=== PATIENT | male | born 1960 | race Caucasian/White ===

== ENCOUNTER 2021-09-17 15:16 | Outpatient (CLI) | payer BC, SELFPAY ==
[2021-09-17 15:51] LABS: Basophils Percent Auto 0.7 % (0.2-1.2); Eosinophils Percent Auto 0.2 % (0-4.4); Hematocrit 41.5 % (42.0-52.0); Lymphocytes Percent Auto 30.4 % (18.3-44.2); Mean Corpuscular HGB Conc 33.7 g/dl (32-36); Mean Corpuscular Hemoglobin 30.3 pg (26-34); Mean Corpuscular Volume 89.8 fl (80-100); Mean Platelet Volume 10.2 fl (7.4-10.4); Monocytes Absolute Auto 0.4 K/mm3 (0.1-0.6); Monocytes Percent Auto 7.8 % (2.6-8.5); Neutrophils Absolute Auto 2.8 K/mm3 (1.3-6.7); Neutrophils Percent Auto 60.9 % (45.5-73.1); Platelet Count Result 249 k/mm3 (150-375); Red Blood Count 4.62 M/mm3 (4.6-6.20); Red Cell Distribution Width 12.4 % (11.5-14.5); White Blood Count 4.6 K/mm3 (4.5-10.0)
[2021-09-17 15:57] LABS: Anion Gap 7 mmol/L (8-16); Blood Urea Nitrogen 17 mg/dL (9-20); Calcium 9.9 mg/dL (8.4-10.2); Carbon Dioxide 31 mmol/L (22-30); Chloride 101 mmol/L (98-107); Estimated Glomerular Filt Rate > 60; Glucose 100 mg/dL (65-110); Sodium 139 mmol/L (137-145)
[2021-09-17 15:59] LABS: INR 1.1; Partial Thromboplastin Time 28.9 SECONDS (22.3-36.8); Prothrombin Time 13.8 Seconds (11.1-14.7)
== END 2021-09-17 15:17 | disposition home or self-care (01) ==
PROVIDERS: PCP Family Medicine; Visit Provider Urology
DX: Z01.812 Encounter for preprocedural laboratory examination (principal); N40.1 Benign prostatic hyperplasia with lower urinary tract symptoms; Z51.81 Encounter for therapeutic drug level monitoring; Z79.899 Other long term (current) drug therapy
CPT/HCPCS: 36415; 80048; 85025; 85610; 85730; 87077; 87086; 87088

== ENCOUNTER 2021-09-23 00:58 | Day surgery (SDC) | payer BC, SELFPAY ==
[2021-09-17 10:58] VITALS: BMI 21.2
--- NOTE | 2021-09-17 11:08 | PC.NURSE ---
Report to the Outpatient Waiting Room, entrance under the green pavilion located off [facility], at time 6:00 on date 09/23/21. OR Time: 8:00. - You will be asked a series of questions to screen for COVID 19 for your protection. - A mask is required within the hospital. - No visitors are allowed at this time. Preoperative COVID Testing Requirements: TO BRING COPY OF COVID CARD No COVID Test needed if: (proof is required; if not received patient will have Rapid Test prior to entry) - Patient has received COVID Vaccine at least 14 days prior to procedure date or - Patient has positive COVID test result within last 90 days of surgery date. COVID Test needed if above criteria is not met Patients may have clear liquids (water, carbonated beverages, clear teas, apple juice) until 3 hours prior to surgery (5:00) with a maximum of 20 ounces. - No food from midnight until time of surgery Take the following medications with a SIP of water the morning of surgery: NONE Medications to discontinue per physician: VITAMINS/SUPPLEMENTS Date to take last dose: 09/19/21 Please no make-up, nail macedonian, hairspray, perfume, deodorant, or body powder the day of surgery. No jewelry (including any body piercings) or valuables the day of surgery, leave them at home. Please take a shower or bath the night before, or the morning of, surgery with an antibacterial soap. Wear comfortable, loose fitting clothing. - Jewelry must be removed prior to entering the operating room. Rings and piercings that are not removed may be cut off. - The hospital will not accept responsibility for valuables. - Please leave all valuables, including medications, at home the day of surgery. If you are going home after surgery, a licensed oil truck driver must drive you home. - NO public transportation without another adult. - We recommend that an adult stay with you for 24 hours following discharge. - We also recommend that you do not drive, make important decision, drink alcoholic beverages, or take any drugs that were not prescribed by your health care provider for at least 24 hours after your discharge time. Follow any additional instructions given to you from your surgeon. Telephone instructions given to HERMELINDA WHYTE and asked if any additional questions and then verbalized understanding. Patient advised to call surgeon office or pre surgery nurse liaison [phone] if any additional questions.
--- NOTE | 2021-09-22 15:19 | WPDANESEPPF ---
Anes - Initial Pre Proc Eval Procedure: Operation Date: 09/23/21 08:00 Proposed Procedures p Trans Urethral Resection Prostate - Joaquim Middleton MD Date/Time: 09/22/21 15:19 Surgeon: Joaquim Middleton MD Pre Op Diagnosis: bph with obstruction Patient Data Age: 61 Gender: M Height: 1.93 m Weight: 79.38 kg Allergies Allergy/AdvReac Type Severity Reaction Status Date / Time No Known Allergies Allergy Verified 09/17/21 10:56 Home Medications Medication Instructions Recorded Confirmed Type cholecalciferol (vitamin D3) 50 mcg PO DAILY 09/17/21 09/17/21 History [Vitamin D3] finasteride 5 mg PO DAILY 09/17/21 09/17/21 History multivitamin 1 tablet PO DAILY 09/17/21 09/17/21 History tamsulosin 0.4 mg PO BID 09/17/21 09/17/21 History Patient hx anesthesia problems: none Family hx anesthesia problems: none Results Review: All pre-operative results and documents have been reviewed as part of the pre-operative evaluation. [facility] Past Medical History Medical History (Updated 09/22/21 @ 15:20 by Moe Stanley DO) BPH (benign prostatic hyperplasia) Social History Social History Smoking status: Never smoker Alcohol intake: current Alcohol use details: 2/MONTH Substance use: never Substance use type: does not use Living arrangements: with family Spiritual care concerns: No Anes - Eval Final PreProcedure Day of Procedure 09/22/21 15:19 Patient weight: normal Heart: regular rate and rhythm Lungs: clear to auscultation and normal air movement Airway: Mallampati scale class II Neurological: alert and oriented Last oral intake: >/= 8 hours ASA classification: II Emergent: no Anesthetic plan: proceed Anesthesia type and monitoring: general LMA and standard monitoring Results Review: All pre-operative results and documents have been reviewed as part of the pre-operative evaluation. Informed Consent: The patient's anesthetic plan and its attendant risks and benefits were discussed with the patient/family/POA. Questions were solicited and answers provided to the satisfaction of the patient/family/POA.
[2021-09-23] VITALS (12 sets, daily range): BP systolic 117–166; BP diastolic 66–94; PULSE 67–109; RESP 14–18; TEMP 36.3–37.2; O2SAT 97–100
--- NOTE | 2021-09-23 06:52 | WPDHPUPDATE1 ---
History and Physical Update Update Date/Time: 09/23/21 06:52 History and Physical has been reviewed, including an updated exam of the patient. There are NO changes in the patient's condition. Risks, benefits, and alternatives have been discussed and questions answered. Patient agrees to proceed with procedure. Proceed with TURP
[2021-09-23] MEDS: LACTATED RINGERS 1,000 ML 30 ML IV CONT ×2 (07:00→09:28)
[2021-09-23] MEDS: MIDAZOLAM HCL (*CRX) 2 MG/2 ML VIAL IV PUSH (07:19)
[2021-09-23] MEDS: ceFAZolin 2 GM/D5W 50 ML 2 GM/50 ML BAG IVPB (07:40)
[2021-09-23] MEDS: LIDOCAINE HCL 2% GEL UROJET 10 ML PKG MUCOUS MEM (08:08)
--- NOTE | 2021-09-23 09:24 | W.PM.PROC2 ---
Procedure Note - Detailed Date of Procedure 09/23/21 Pre-op Diagnosis bph with obstruction Post-op Diagnosis same Procedure Performed Transurethral resection of prostate with urethral dilation Surgeon Joaquim Middleton MD Anesthesia general Description of Procedure The patient was brought to the operative suite where he is prepped and draped in routine sterile fashion while in the dorsal lithotomy position after the uneventful induction of a [general LMA/spinal] anesthetic.He had a tight bulbar area. This was dilated. A 24 [place] resectoscope sheath was placed into his bladder. . The patient had [trilobar/bilobar] hyperplasia with a large] median lobe. The bladder itself was endoscopically normal, showing no mucosal hyperemia, intravesical neoplasm or foreign bodies. There was a single, orthotopic ureteral orifice bilaterally. These orifices were identified and preserved throughout the remainder of the procedure. Attention was 1st turned to resection of the median lobe . This resection was undertaken from the bladder neck to the verumontanum and carried out until the transverse fibers of the bladder neck were identified. The left lateral lobe was then resected starting at the 6 o'clock position, working counter clockwise to the 12 o'clock position. Again, resection was carried out from the bladder neck to the verumontanum. The right lateral lobe was resected in a similar fashion starting at the 6 o'clock position working clockwise to the 12 o'clock position. Apical tissue was then circumferentially resected. All chips were evacuated from the bladder using an Edtrips evacuator. Hemostasis was obtained with electric cautery. The ureteral orifices were again inspected and found to be without injury. Estimated blood loss throughout this procedure was 100cc . 2% viscous lidocaine was inserted urethra and a [address] was placed with 30 cc in the balloon. This was connected to continuous bladder irrigation The patient was taken to recovery room having tolerated this well. Drains Yes Packing No Pathology yes Complications No immediate complications Condition stable Disposition PACU
[2021-09-23] MEDS: DEXTROSE 5%/LACTATED RINGERS 1,000 ML 125 ML IV CONT (11:48)
--- NOTE | 2021-09-23 12:12 | PC.NURSE ---
This patient, David Salgado, was admitted to [facility]-. Patient/family oriented to hospital policies and general routines including ID bracelet, bed and alarms, visiting hours, pain management, procedures, bathroom and other care routines, personal items, smoking policy, room service/diet, and visiting hours. Information on how to activate the Rapid Response Team has been discussed. Patient/Family are encouraged to report perceived risks to care and to ask questions if they do not understand what they are told or what they should do.
[2021-09-24] VITALS: BP 120/72; PULSE 64; RESP 14; TEMP 36.3; O2SAT 99
[2021-09-24 05:06] VITALS: BP 126/78; PULSE 65; RESP 16; TEMP 36.3; O2SAT 99
[2021-09-24 05:36] LABS: Hemoglobin 11.7 g/dL (14.0-18.0)
[2021-09-24 05:59] LABS: Anion Gap 8 mmol/L (8-16); Blood Urea Nitrogen 19 mg/dL (9-20); Calcium 8.8 mg/dL (8.4-10.2); Carbon Dioxide 27 mmol/L (22-30); Chloride 104 mmol/L (98-107); Estimated CRCL calculation 75 ml/min; Estimated Glomerular Filt Rate > 60; Glucose 105 mg/dL (65-110); Potassium 3.6 mmol/L (3.4-5.0); Sodium 139 mmol/L (137-145)
--- NOTE | 2021-09-24 08:09 | WPDUROPN2 ---
Progress Note: A&P Assessment and Plan (1) BPH (benign prostatic hyperplasia): Code(s): N40.0 - Benign prostatic hyperplasia without lower urinary tract symptoms Status: Acute Assessment and Plan: Postoperative day 1. Doing well overall. Hold CBI. Increase ambulation. If urine remains fairly clear light pink will discharge home with Salinas catheter. (2) Urinary retention: Code(s): R33.9 - Retention of urine, unspecified Status: Acute Assessment and Plan: Component of this is secondary to BPH. He also may have a slight neurogenic component given the fact that he retains over 400 cc and has lack of sensation with that amount. Will see how he Subjective Subjective Date/Time Seen: 09/24/21 08:09 Post Op day: 1 (Trans Urethral resection of prostate) Principal diagnosis: BPH with urinary retention Interval history: doing well postoperative day 1. Urine is clear with very minimal CBI. Review of Systems Review of Systems: All systems reviewed & are unremarkable except as noted in HPI and below Exam Const: General: cooperative and comfortable Resp: Effort & Inspection: normal respiratory effort Cardio: Rate: regular rate Rhythm: regular rhythm GI: GI Palp: Yes Soft to palpation Objective Data Vital Signs Vital Signs: Vital Signs - 24 hr 09/23/21 09:28 09/23/21 09:40 09/23/21 09:55 Temperature 37.2 C Pulse Rate 77 78 75 Respiratory Rate 14 18 16 Blood Pressure 117/76 120/86 130/88 Pulse Oximetry 98 99 100 09/23/21 10:10 09/23/21 10:25 09/23/21 10:35 Temperature 36.3 C L Pulse Rate 78 78 75 Respiratory Rate 14 16 16 Blood Pressure 132/87 133/82 141/87 H Pulse Oximetry 100 97 97 09/23/21 10:55 09/23/21 12:23 09/23/21 16:18 Temperature 36.8 C 36.6 C Pulse Rate 84 77 68 Respiratory Rate 16 16 16 Blood Pressure 146/88 H 141/84 H 125/76 Pulse Oximetry 99 99 09/23/21 20:00 09/23/21 22:00 09/24/21 00:00 Temperature 36.7 C 36.7 C 36.3 C L Pulse Rate 67 67 64 Respiratory Rate 16 16 14 Blood Pressure 124/66 124/66 120/72 Pulse Oximetry 99 99 99 09/24/21 05:06 Temperature 36.3 C L Pulse Rate 65 Respiratory Rate 16 Blood Pressure 126/78 Pulse Oximetry 99 Intake/Output Intake/Output: Intake & Output 09/21/21 09/22/21 09/23/21 09/24/21 23:59 23:59 23:59 23:59 Intake Total 42248 9350 Output Total 20571 33186 Balance -39346 -9808 Meds/Results Medications: Active Medications Generic Name Dose Route Start Last Admin Trade Name Freq PRN Reason Stop Dose Admin Hydrocodone Bitart/Acetaminophen 1 tab 09/23/21 10:38 Hydrocodone/Acetaminophen (*Crx) 5-325 Mg Tablet PO Q4H PRN Pain Rated 1-6 Cephalexin HCl 500 mg 09/24/21 09:00 Cephalexin 500 Mg Capsule PO QID CHRISTIE Docusate Sodium 100 mg 09/23/21 17:00 09/23/21 17:09 Docusate Sodium 100 Mg Capsule PO Not Given BID CHRISTIE Hyoscyamine 0.125 mg 09/23/21 10:38 Hyoscyamine Sulfate 0.125 Mg Tablet SUBLINGUAL Q6H PRN Bladder Spasm Dextrose/Lactated Ringer's 1,000 mls @ 125 mls/hr 09/23/21 10:38 09/23/21 19:48 Dextrose 5%/Lactated Ringers IV CONT Infused .Q8H CHRISTIE Infusion Morphine Sulfate 2 mg 09/23/21 10:38 Morphine Sulfate (*Crx) 2 Mg/Ml Inj IV PUSH Q2H PRN Pain Rated 7-10 Naloxone HCl 0.1 mg 09/23/21 10:38 Naloxone Hcl 0.4 Mg/Ml Vial IV PUSH Q2M PRN Opiate Reversal Ondansetron HCl 4 mg 09/23/21 10:38 Ondansetron Inj 4 Mg/2 Ml Vial IV PUSH Q12H PRN Nausea And Vomiting Labs Labs: Laboratory Results - last 24 hr 09/24/21 09/24/21 05:22 05:22 Hgb 11.7 L Hct 35.0 L Sodium 139 Potassium 3.6 Chloride 104 Carbon Dioxide 27 Anion Gap 8 BUN 19 Creatinine 1.00 Estim Creat Clear Calc 75 Estimated GFR > 60 Glucose 105 Calcium 8.8
[2021-09-24] MEDS: CEPHALEXIN 500 MG CAPSULE PO ×2 (08:22→12:51)
[2021-09-24] MEDS: DOCUSATE SODIUM 100 MG CAPSULE PO (08:22)
[2021-09-24 08:26] VITALS: BP 137/85; PULSE 65; RESP 15; TEMP 36.4; O2SAT 100
--- NOTE | 2021-09-24 12:17 | WPDANESPN ---
Anes - Prog Note Post-Op Date/Time: 09/24/21 12:17 Cardiovascular status: normal Respiratory status: normal Airway patency: baseline Mental status: baseline Post-Op hydration status: normal Vital Signs: Last Vital Signs Temp 97.6 F 09/24/21 08:26 Pulse 65 09/24/21 08:26 Resp 15 09/24/21 08:26 BP 137/85 09/24/21 08:26 Pulse Ox 100 09/24/21 08:26 Pain Score (VAS): 09/15 I/O: Intake & Output 09/23/21 09/24/21 09/24/21 23:59 07:59 15:59 Intake Total 52859 9350 350 Output Total 50851 15153 Balance -86262 -5400 350 Laboratory Tests 09/24/21 05:22 09/24/21 05:22 09/24/21 09/24/21 05:22 05:22 Hgb 11.7 L Hct 35.0 L Sodium 139 Potassium 3.6 Chloride 104 Carbon Dioxide 27 Anion Gap 8 BUN 19 Creatinine 1.00 Estim Creat Clear Calc 75 Estimated GFR > 60 Glucose 105 Calcium 8.8 Post-procedural complaints: none Patient Feedback: Patient satisfied with anesthetic care.
--- NOTE | 2021-09-24 12:52 | PM.DS ---
DS: Admitting Diagnosis Discharge Date 09/24/2021 Admitting Diagnosis BPH with urinary retention DS: Discharge Diagnosis Discharge Diagnosis (1) BPH (benign prostatic hyperplasia): Code(s): N40.0 - Benign prostatic hyperplasia without lower urinary tract symptoms Status: Acute (2) Urinary retention: Code(s): R33.9 - Retention of urine, unspecified Status: Acute DS: Summary Hospital Course Hospital Course: patient underwent an uneventful transurethral resection of his prostate. Postoperatively he was admitted with continuous bladder irrigation. His urine cleared over the ensuing 18 hours. At the time of discharge his urine is fairly clear with no CBI. Patient will be discharged home with Salinas catheter and plan on voiding trial next week on Wednesday. Time Spent with Patient Time attestation: Total time spent providing and/or coordinating discharge services: 30 minutes DS: Data Data Completed and Pending Pending studies at discharge: Pending at discharge 09/23/21 08:01 Surgical [PTH] Routine Labs on day of discharge: Labs from last 24 hours 09/24/21 09/24/21 05:22 05:22 Hgb 11.7 L Hct 35.0 L Sodium 139 Potassium 3.6 Chloride 104 Carbon Dioxide 27 Anion Gap 8 BUN 19 Creatinine 1.00 Estim Creat Clear Calc 75 Estimated GFR > 60 Glucose 105 Calcium 8.8 Discharge Plan Discharge Patient Disposition: Home, Self-Care Discharge Instructions: Discharged home with Salinas catheter. Instructed on use of leg bag and catheter care. Will have office schedule follow-up for Wednesday for Salinas catheter removal. Script for pain meds given. Patient will finish out his amoxicillin and script for Bactrim DS b.i.d. was sent to his pharmacy Stand Alone Forms: General Discharge Instructions Discharge Orders: Discharge Order (Routine); Ordered 09/24/21 Ordered By: Joaquim Middleton Discharge Medications: Continued multivitamin Tablet 1 tablet PO DAILY RF: 0 tamsulosin 0.4 mg Capsule 0.4 mg PO BID RF: 0 cholecalciferol (vitamin D3) [Vitamin D3] 50 mcg (2,000 unit) Capsule 50 mcg PO DAILY RF: 0 Discontinued finasteride 5 mg Tablet 5 mg PO DAILY RF: 0
--- NOTE | 2021-09-24 13:46 | PC.NURSE ---
Pt provided with a leg bag and a larger bag for catheter, also was instructed on catheter care.
== END 2021-09-24 14:15 | disposition home or self-care (01) ==
LOC: ANHSURGERY 05:52 → ANHSUROVER 10:46
PROVIDERS: PCP Family Medicine; Visit Provider Urology
PROC: 0VT08ZZ Resection of Prostate, Via Natural or Artificial Opening Endoscopic (ICD-10-PCS; CPT 52601; principal; 2021-09-23 08:00)
DX: N40.1 Benign prostatic hyperplasia with lower urinary tract symptoms (principal); R33.8 Other retention of urine; R39.198 Other difficulties with micturition; R39.12 Poor urinary stream; R35.1 Nocturia
CPT/HCPCS: 52601; 36415; 80048; 85014; 85018; 88305; A9270; J0690; J1100; J2250; J2370; J2405; J2704; J3010; J7120; J7121